=== PATIENT | male | born 1985 | race Caucasian/White ===

== ENCOUNTER 2017-06-26 06:48 | Emergency (ER) | payer OTHER ==
[~2017-06-26] VITALS: Ht 175.3 cm; Wt 79.4 kg
--- NOTE | ~2017-06-26 | CT4 ---
[facility] A Service of [facility] & [facility] RADIOLOGY TEXT RESULTS PATIENT: ANATOLY WINTER LOCATION: [employer] : [birth year] UNIT #: [id number] AGE: [address]: Willian Hood MD SEX: M ORDER DR: [id number] [facility] [address] [place], [place] [address] [id number] MR#: [id number] Acc #: [id number] NAME: ANATOLY WINTER : 1985 SEX: M STUDY DATE/TIME: 06/26/2017 8:26 UNIT: [facility] ROOM: STUDY DESCRIPTION: CT Abd and Pelv Wo Cont Attending Physician: Willian Hood M.D. Ordering Physician: Willian [id number] Radha Hood Primary Care Physician: Gay Michaud M.D. MEDICAL IMAGING REPORT This report is preliminary unless electronic signature is present EXAM CT scan of the abdomen and pelvis without contrast. INDICTIONS Kidney stones. Left flank pain since this morning and blood in urine. Patient had a lithotripsy on the June 21, 2017. TECHNIQUE Axial images were obtained from the dome of the diaphragm through symphysis pubis. No oral or intravenous contrast material administered. The CT exam was performed with one or more of the following radiation dose reduction techniques: automatic exposure control, adjustment of mA and/or kV according to patient size, and iterative reconstruction. FINDINGS Images through the lung bases demonstrate right basilar atelectasis versus scarring and this patient has moderate left-sided hydroureteronephrosis which is secondary to a 7 mm stone located within the distal left ureter. Distal to this the ureter is decompressed. Additional nonobstructing stones are seen within both kidneys greater stone volume identified on the left. No stones are seen within the bladder. Liver appears unremarkable as are the spleen, stomach, proximal small bowel, adrenal glands and pancreas. Gallbladder is contracted but otherwise unremarkable. The prostate gland is within normal limits as is the urinary bladder. Unopacified GI tract shows a few sparse colonic diverticula without any evidence of diverticulitis. The appendix is visualized and is within normal limits. No free fluid or adenopathy is seen within the pelvis. STS. [facility] A Service of [facility] & [facility] RADIOLOGY TEXT RESULTS PATIENT: MOYRAY LOCATION: [facility] : [birth year] UNIT #: [id number] AGE: [address]: Willian Hood MD SEX: M ORDER DR: Review of bony windows does not demonstrate any aggressive osseous abnormality. IMPRESSION 1. Moderate left-sided hydroureteronephrosis which is secondary to a 7 mm stone located within the distal left ureter. No stones are seen distal to this, no stones are seen within the bladder. There is some associated perinephric, periureteral soft tissue stranding. Correlation with urinalysis and/or cultures suggested. 2. Patient has multiple additional nonobstructing stones within both kidneys. 3. Sparse colonic diverticula. 4. The appendix is visualized and is within normal limits. Dictated by... Elissa Tiwari M.D. THIS IS AN ELECTRONICALLY VERIFIED REPORT Elissa Tiwari M.D. at 06/27/2017 8:03 AM ESTELA/miguel TD: 06/26/2017 10:07 JOB #: [id number] MEDICAL IMAGING REPORT Page 1 of 1 COPY
[~2017-06-26 06:48] MED LIST: ANUSOL-HC CREAM30 G1 EXT; CIPRO PO; FLEXERIL10 MG PO; FLOMAX0.4 M1 PO; IMMODIUM PO; KETOPROFEN PO; LORTAB 5/500 TA1 TA1 PO; PHENERGAN25 MG PO; ULTRAM PO; VICODIN 5/1 TAB 5/50 PO; VOLTAREN75 MG PO; ZOFRAN ODT4 MG PO; ZOFRAN PO
[2017-06-26 07:55] LABS: URINE SOURCE CLEAN CATCH
[2017-06-26 07:56] LABS: BASOPHIL% 0.2 % (0-2.5); EOSINOPHIL# 0.3 X10e3 (0-0.7); EOSINOPHIL% 2.4 % (0.0-7.0); HEMOGLOBIN 14.5 gm/dL (13.0-16.0); LYMPHOCYTE# 2.7 X10e3 (1.0-3.5); LYMPHOCYTE% 20.7 % (17.0-45.0); MEAN CELL VOLUME 108.2 FL (83-96); MEAN CORPUSCULAR HEMOGLOBIN 36.4 PG (28-34); MEAN CORPUSCULAR HGB CONC 33.6 g/dL (30-36); MEAN PLATELET VOLUME 7.7 FL (6.5-11.5); MONOCYTE# 1.2 X10e3 (0-1.0); MONOCYTE% 9.1 % (3.0-12.0); NEUTROPHIL# 8.7 X10e3 (1.5-7.1); NEUTROPHIL% 67.6 % (40-75); PLATELET COUNT 222 X10e3 (140-420); RED BLOOD COUNT 3.97 X10e (3.90-5.60); RED CELL DISTRIBUTION WIDTH 13.7 % (11.0-15.5); WHITE BLOOD COUNT 12.9 X10e3 (4.0-10.5)
[2017-06-26 08:00] LABS: URINE APPEARANCE CLOUDY; URINE BILIRUBIN NEG (NEG); URINE BLOOD 3+ (NEG); URINE COLOR YELLOW; URINE GLUCOSE NEG (NEG); URINE KETONE NEG (NEG); URINE LEUKOCYTE ESTERASE NEG (NEG); URINE NITRATE NEG (NEG); URINE PROTEIN 1+ (NEG); URINE SPECIFIC GRAVITY 1.023 (1.003-1.035)
[2017-06-26 08:03] LABS: U HYALINE CASTS AUWI 0-2 /[LPF]; URBCS1 AUWI 100-200 /[HPF] (0-2); URINE BACTERIA AUWI NEG (NEGATIVE); URINE SQUAMOUS EPITHELIAL CELL NONE SEEN /[HPF]
[2017-06-26 08:13] LABS: DIFF IND YES
[2017-06-26 08:16] LABS: CULTURE INDICATED? NO
[2017-06-26 08:19] LABS: BUN/CREATININE RATIO 11.66; CALCIUM SERUM 8.8 mg/dL (8.4-10.2); CREATININE SERUM 1.2 mg/dL (0.6-1.4); POTASSIUM 3.9 mmol/L (3.5-5.1)
[2017-06-26 08:28] LABS: PLATELET ESTIMATE NORMAL (NORMAL)
== END 2017-06-26 10:15 | disposition home or self-care (01) ==
LOC: CED 06:48
PROVIDERS: Emergency Medicine
DX: N13.2 Hydronephrosis with renal and ureteral calculous obstruction (principal); Z79.899 Other long term (current) drug therapy
CPT/HCPCS: 36415; 74176; 80048; 81003; 83690; 85025; 96361; 96374; 96375; 96376; 99284; J1170; J1885